=== PATIENT | female | born 1970 | race Caucasian/White ===

== ENCOUNTER 2020-02-21 13:51 | Outpatient (CLI) | payer BC ==
[2020-02-21] MEDS ORDERED: LIDOCAINE (4%) 40 MG/ML TOPICAL SOLN 50 ML BOTTLE TP ONE (14:02)
== END 2020-02-21 13:52 | disposition home or self-care (01) ==
LOC: WOUND 13:51
PROVIDERS: ATTEND Surgery
DX: L02.426 Furuncle of left lower limb (principal); L97.122 Non-pressure chronic ulcer of left thigh with fat layer exposed; I10 Essential (primary) hypertension; E07.9 Disorder of thyroid, unspecified; F41.9 Anxiety disorder, unspecified; F17.200 Nicotine dependence, unspecified, uncomplicated; Z98.51 Tubal ligation status

== ENCOUNTER 2020-03-06 14:05 | Outpatient (CLI) | payer BC ==
[2020-03-06] MEDS ORDERED: LIDOCAINE (4%) 40 MG/ML TOPICAL SOLN 50 ML BOTTLE TP ONE (14:14)
== END 2020-03-06 14:06 | disposition home or self-care (01) ==
LOC: WOUND 14:05
PROVIDERS: ATTEND Surgery
DX: L98.492 Non-pressure chronic ulcer of skin of other sites with fat layer exposed (principal); L97.122 Non-pressure chronic ulcer of left thigh with fat layer exposed; I10 Essential (primary) hypertension; F41.9 Anxiety disorder, unspecified; E07.89 Other specified disorders of thyroid; F17.200 Nicotine dependence, unspecified, uncomplicated

== ENCOUNTER 2020-03-27 10:49 | Outpatient (CLI) | payer BC | END 2020-03-27 10:50 | disposition home or self-care (01) | LOC: WOUND 10:49 | PROVIDERS: ATTEND Surgery | DX: L98.498 Non-pressure chronic ulcer of skin of other sites with other specified severity (principal); L97.122 Non-pressure chronic ulcer of left thigh with fat layer exposed; I10 Essential (primary) hypertension; F41.9 Anxiety disorder, unspecified; E07.89 Other specified disorders of thyroid; F17.200 Nicotine dependence, unspecified, uncomplicated | CPT/HCPCS: 99213; G0463 ==